=== PATIENT | male | born 1990 ===

== ENCOUNTER 2017-10-03 08:34 | Day surgery (SDC) | payer OTHER ==
--- NOTE | 2017-07-11 06:54 | Anethesia Preoperative Eval ---
Anesthesia Pre-op PMH/ROS General Mallampati Score Class I : Soft palate, uvula, fauces, pillars visible Class II: Soft palate, uvula, fauces visible Class III: Soft palate, base of uvula visible Class IV: Only hard plate visible Allergies: Coded Allergies: No Known Allergies (Unverified , 07/10/17) Anesthesia Pre-op Phys. Exam Airway Exam Neck: supple TMD: 2fb Anesthesia Pre-op A/P Risk Assessment & Plan Plan: mac Pre-Antibiotics Drug: GISELA Liu Jul 11, 2017 06:54
[2017-10-03] VITALS (12 sets, daily range): BP systolic 114–125; BP diastolic 70–88
[~2017-10-03] VITALS: Ht 167.6 cm; Wt 79.4 kg
[~2017-10-03 08:34] MED LIST: Atropine Inj 1mg/10ml Syr IV PRN; BUPROPION HCL100 M1 ORAL; DiphenhydrAMINE 50mg/ml Inj IVP PRN; LR 1000ml 1,000 ML IVLG SCH; Midazolam 2mg/2ml Inj IVP PRN; OMEPRAZOLE20 M2 ORAL; QUETIAPINE FUMA50 MG ORAL; TRAMADOL HCL50 MG ORAL; XANAX0.5 MG ORAL; fentaNYL 100 mcg/2 mL IV PRN
--- NOTE | 2017-10-03 08:58 | Short Stay Surgery H&P ---
History of Present Illness History of Present Illness Chief Complaint Abdominal pains and GERDs. HPI Lowell Payne is a 27 year old male who was admitted on for Gerd/Reflux/ abdominal pains Patient History Allergies: Coded Allergies: No Known Allergies (Unverified , 07/10/17) Medication History Scheduled Alprazolam* (Xanax*), 0.5 MG ORAL PRN, (Reported) Bupropion Sr* (Bupropion Sr*), 100 MG ORAL EVERY 12 HOURS, (Reported) Omeprazole (Omeprazole), 20 MG ORAL BID, (Reported) Quetiapine Fumarate* (Quetiapine Fumarate*), 50 MG ORAL HS, (Reported) Scheduled PRN Tramadol Hcl* (Ultram*), 50 MG ORAL Q8HR PRN for For Pain, (Reported) Review of Systems Cardiovascular: Reports: no symptoms Respiratory: Reports: no symptoms Skeletal: Reports: trauma Gastrointestinal: Reports: gastro esophageal reflux disease Genitourinary: Reports: no symptoms Neurologic: Reports: no symptoms Endocrine: Reports: no symptoms Hematologic: Reports: no symptoms Physical Exam Vital Signs Last Vital Signs Date Time Temp Pulse Resp B/P (MAP) Pulse Ox O2 Delivery O2 Flow Rate FiO2 10/03/17 08:54 97.1 96 18 125/80 (95) 97 97.1 Skin: normal HENT: normal Heart: normal Lungs: normal Abdomen: abnormal Extremities: normal Genitourinary: normal Plan Plan of Care Upper GI endoscopy with biopsy Preop Interventions None. Summary of Findings see the reports Attestation Are the patient's medical conditions optimized for surgery? Attestation Response: yes Ashley Haile MD Oct 03, 2017 08:58
--- NOTE | 2017-10-03 09:48 | Pre-Procedure Note/Attestation ---
Pre-Procedure Note/Attestation Complete Prior to Procedure Procedure Narrative: Abdominal pains/GERDS. Indications for Procedure Pre-Operative Diagnosis: R/O Gastritis/peptic ulcers. Attestation I attest that I discussed the nature of the procedure; its benefits; risks and complications; and alternatives (and the risks and benefits of such alternatives ), prior to the procedure, with the patient (or the patient's legal loss prevention representative). I attest that, if there was a reasonable possibility of needing a blood transfusion, the patient (or the patient's legal loss prevention representative) was given the [facility] standardized written summary, pursuant to the [place] Blood Safety Act ([place] Health and Safety Code # 1645, as amended). I attest that I re-evaluated the patient just prior to the surgery and that there has been no change in the patient's H&P, except as documented below: Ashley Haile MD Oct 03, 2017 09:48
[2017-10-03] MEDS ORDERED: Propofol 200mg/20ml IV ONE (10:00)
[2017-10-03] MEDS ORDERED: LR 1000ml ONE (10:00)
[2017-10-03] MEDS ORDERED: Lidocaine 1% MPF 10mg/ml 5ml ONE (10:00)
--- NOTE | 2017-10-03 10:20 | Endoscopy Procedure Note ---
Endoscopy Procedure Note General Indication for Procedure: Abdominal pains/vomiting and GERDs Procedures Performed: EGD - Mild/moderate gastritis. Biopsy was per random from gastric body. Specimen: yes Pt Tolerated Procedure Well: Yes Estimated Blood Loss: none Anesthesia Anesthesiologist: Dr. Kitchen Anesthesia: moderate sedation Medications Medication Given: see anesthesia record Inserted Devices Implant(s) used?: No Quality Quality of Bowel Preparation: Excellent Was there any complications?: No GI Core Measures 50 yrs or older w/o bx or poly: Not Applicable 10yrs. F/U not recommended: Not Applicable If not recommended, why?: Med reason:<3 yrs.: System Reason:<3 yrs.: Ashley Haile MD Oct 03, 2017 10:20
--- NOTE | 2017-10-03 10:21 | Discharge Instructions ---
Discharge Instructions Discharge Instructions Follow up with: See the doctor in office after 2 weeks For Congestive Heart Failure Reminder Report to your physician any weight gain of 5 pounds or more in one week. Ashley Haile MD Oct 03, 2017 10:21
--- NOTE | 2017-10-03 12:37 | Anethesia Preoperative Eval ---
Anesthesia Pre-op PMH/ROS General Date of Evaluation: Oct 03, 2017 Time of Evaluation: 09:45 Anesthesiologist: chad ASA Score: ASA 2 Mallampati Score Class I : Soft palate, uvula, fauces, pillars visible Class II: Soft palate, uvula, fauces visible Class III: Soft palate, base of uvula visible Class IV: Only hard plate visible Mallampati Classification: Class II Surgeon: lucius Diagnosis: gerd Surgical Procedure: egd Anesthesia History: none Family History: no anesthesia problems Allergies: Coded Allergies: No Known Allergies (Unverified , 07/10/17) Medications: see eMAR Past Medical History Gastrointestinal/Genitourinary: Reports: GERD Neurologic/Psychiatric: Reports: depression/anxiety Anesthesia Pre-op Phys. Exam Physician Exam Last Vital Signs Date Time Temp Pulse Resp B/P (MAP) Pulse Ox O2 Delivery O2 Flow Rate FiO2 10/03/17 12:05 92 16 120/86 (97) 96 10/03/17 11:55 97.9 97.9 10/03/17 09:08 Room Air Constitutional: NAD Neurologic: CN 2-12 intact Cardiovascular: RRR Respiratory: CTA Gastrointestinal: S/NT/ND Airway Exam Mallampati Score: Class II MO: full Neck: supple TMD: 2fb ROM: full Teeth: intact Anesthesia Pre-op A/P Risk Assessment & Plan Assessment: asa2 Plan: mac Status Change Before Surgery: No Pre-Antibiotics Drug: Gay Tomas MD Oct 03, 2017 12:37
--- NOTE | 2017-10-03 12:38 | Immediate Post-Op Evaluation ---
Immediate Post-Op Evalulation Immediate Post-Op Evalulation Procedure: egd w/bx Date of Evaluation: Oct 03, 2017 Time of Evaluation: 10:42 IV Fluids: 250ml lr Blood Products: none Estimated Blood Loss: neglgigble Blood Pressure Systolic: 116 Blood Pressure Diastolic: 78 Pulse Rate: 95 Respiratory Rate: 18 O2 Sat by Pulse Oximetry: 98 Temperature (Fahrenheit): 98.6 Pain Score (1-10): 0 Nausea: No Vomiting: No Complications none Patient Status: awake, reacts, patent Hydration Status: adequate Drug: Gay Tomas MD Oct 03, 2017 12:38
--- NOTE | 2017-10-03 12:41 | 48 Hour Post Anesthesia Eval ---
Post Anesthesia Evaluation Procedure: egd w/bx Date of Evaluation: Oct 03, 2017 Time of Evaluation: 10:44 Blood Pressure Systolic: 119 0: 78 Pulse Rate: 98 Respiratory Rate: 18 Temperature (Fahrenheit): 98.6 O2 Sat by Pulse Oximetry: 98 Airway: patent Nausea: No Vomiting: No Pain Intensity: 0 Hydration Status: adequate Cardiopulmonary Status: stable Mental Status/LOC: patient returned to baseline Post-Anesthesia Complications: none Follow-up care needed: N/A Gay Thayer MD Oct 03, 2017 12:41
[2017-10-03] MEDS ORDERED: Midazolam 2mg/2ml Inj IVP PRN (12:42)
[2017-10-03] MEDS ORDERED: fentaNYL 100 mcg/2 mL IV PRN (12:42)
[2017-10-03] MEDS ORDERED: DiphenhydrAMINE 50mg/ml Inj IVP PRN (12:43)
[2017-10-03] MEDS ORDERED: Labetalol 5mg/ml 20ml vial IV PRN (12:43)
[2017-10-03] MEDS ORDERED: Atropine Inj 1mg/10ml Syr IV PRN (12:44)
[2017-10-03] MEDS ORDERED: LR 1000ml 1,000 ML IVLG SCH (12:44)
--- NOTE | 2017-10-03 20:16 | Operative Note - Dictated ---
DATE OF OPERATION: 10/03/2017 SURGEON: Ashley Haile M.D. PROCEDURE: Esophagogastroduodenoscopy with biopsy. PREOPERATIVE DIAGNOSIS: Abdominal pain, vomiting, and severe heartburn. POSTOPERATIVE DIAGNOSIS: Mild/moderate gastritis. Biopsy was taken from gastric body per random. MEDICATION USED: Per Dr. Kitchen, anesthesiologist. INSTRUMENT: GIF Olympus upper GI video endoscope. DESCRIPTION OF PROCEDURE: The patient after arriving at the endoscopy unit, was told about risks and benefits of the procedure, which he accepted and signed informed consent. He was then put on the left lateral decubitus position. After adequate IV sedation, the scope was gently passed through the cricopharyngeal area, was lodged into the upper esophagus, and gradually advanced towards the gastroesophageal junction. The entire length of the esophagus looked normal. No evidence of varices, inflammatory process, ulceration, stricture, etc. was found. GE junction also looked normal. At this point, the scope was advanced into the stomach. Gastric cavity was distended. Gastric fold came into view and the areas of the fundus and the body and antrum were examined in an stem dryer maintainer fashion, which revealed evidence of mild/moderate gastritis presenting with edema and some erythema generally. There was no natalie ulceration, tumor, bleeding site, hemangioma, etc. One random biopsy from gastric body was also obtained for pathology. The scope at this time, was retroflexed and the area of the gastroesophageal junction was examined in a closer fashion, which revealed no other pathologies. Finally, the scope was passed through the antrum and introduced into the pylorus. First and second portion of duodenum were found to be completely normal. At this time, the scope was pulled out and the procedure was terminated. The patient tolerated the procedure well and left the endoscopy room in a good condition. Ashley Haile M.D. DR: VANESSA JOB#: [id number] CC:
--- NOTE | 2017-10-03 20:46 | Pre-op HX & Phy Repo 2 SIG ---
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 The applicant basically is complaining of pain being experienced over the upper part of the abdomen along with periods of nausea and vomiting and severe heartburn. He also does have occasional constipation with difficult passage of stools. The applicant reports that he was injured at job site as his function was as a and as such he was working with machinery cleaning and washing the machines and he also disassembled machinery covered the engines of other machines and then proceeded to wash them with a press washer. During this process, as he was lifting a heavy piece of metal on the day of injury, he was injured and started to have pain over his lower back and the neck area and was subsequently seen by different physicians and received multiple medical treatment including acupuncture and pain management. The applicant at this time denies any history of hematemesis, melena, or hematochezia. There has been no history of rectal bleeding. The applicant however does have history of taking nonsteroidal anti-inflammatory agents that he was taking in the past, but currently he is not taking it. He reports that subsequent to taking these medications, he started to experience symptoms of GI tract along with the side effects of analgesics as well as mentioned. PAST MEDICAL HISTORY: Basically none significant. He denies hypertension, hypercholesterolemia, diabetes, etc. PAST SURGICAL HISTORY: Also, none significant. ALLERGIES: None significant. MEDICATIONS: Present list of medications, the applicant is taking Xanax, Wellbutrin, omeprazole, Seroquel, and Ultram. FAMILY HISTORY: Not significant. HABITS: Does not drink or smoke. REVIEW OF SYSTEMS: Basically, history of present illness. The patient however has been complaining of significant anxiety and stress and has been under control of psychiatrist, as he did not have significant symptoms in that process, as his life has changed and the anxiety and depression is bothersome. PHYSICAL EXAMINATION: GENERAL: Medical examination at this time reveals alert and well-oriented gentleman, does not seem to be in acute distress. VITAL SIGNS: All stable. HEENT: Normocephalic. Pupils, equal in size and reactive to light and accommodation. No conjunctival jaundice. NECK: Supple. No JVD or thyromegaly. CHEST: Clear to auscultation and percussion. No rales or rhonchi. HEART: S1 and S2 normal. Regular rhythm. No gallops or murmur. ABDOMEN: Soft, but tender over upper part of the abdomen, but there is no organomegaly or hepatosplenomegaly. No palpable mass. Bowel sounds are normal. EXTREMITIES: Within normal limits. No pretibial edema, cyanosis, or clubbing. CENTRAL NERVOUS SYSTEM: Grossly normal. PRELIMINARY PREOPERATIVE IMPRESSION: 1. Abdominal pain of uncertain etiology, rule out gastroesophageal acid reflux, gastritis induced by NSAID medications and aggravated by underlying anxiety and stress. 2. Significant anxiety and depression. 3. History of bodily injury, work related. RECOMMENDATIONS: The applicant seems to be stable at this time to undergo the procedure of upper GI endoscopy, for which he has been scheduled. He understands the risks and benefits and will sign the consent. Said Loco Haile DR: AGUILA JOB#: [id number] CC:
== END 2017-10-03 12:10 | disposition home or self-care (01) ==
LOC: GAS 08:34
DX: K29.50 Unspecified chronic gastritis without bleeding (principal); F41.9 Anxiety disorder, unspecified; F32.9 Major depressive disorder, single episode, unspecified
CPT/HCPCS: 43239; J2704; J7120; 94003; 94150